=== PATIENT | female | born 1955 | race Two or more races ===

== ENCOUNTER 2017-07-12 07:08 | Day surgery (SDC) | payer OTHER ==
[~2017-07-12 07:08] MED LIST: DEXILANT30 MG PO; EVISTA60 MG; NEURONTIN300 MG; PERCOCET 10-3251 TAB
== END 2017-07-12 12:26 | disposition home or self-care (01) ==
LOC: AMB-ENDOS 07:08
DX: K64.1 Second degree hemorrhoids (principal); K92.1 Melena